=== PATIENT | male | born 1980 | race Caucasian/White ===

== ENCOUNTER 2017-04-09 22:03 | Emergency (ER) | payer OTHER ==
[~2017-04-09] VITALS: Ht 188 cm; Wt 87.2 kg
[2017-04-09 22:07] VITALS: TEMP 37.2; Ht 188 cm; Wt 87.2 kg
[2017-04-09 22:58] LABS: BASO % 0.5 %; BASO ABS # 0.04 K/uL (0-0.2); COMPLETE YES; EOS % 0.4 %; IG% 0.1 %; LYMPH % 34.1 %; LYMPH ABS # 2.54 K/uL (1.2-3.4); MEAN CELL VOLUME 98.7 fL (80-100); MEAN CORPUSCULAR HEMOGLOBIN 33.8 pg (25-34); MEAN CORPUSCULAR HGB CONC 34.2 g/dl (32-36); MEAN PLATELET VOLUME 11.3 fL (7.4-10.4); MONO % 7.5 %; NEUT % 57.4 %; PLATELET COUNT 260 K/uL (130-400); RED BLOOD COUNT 4.56 M/uL (4.7-6.1); WHITE BLOOD COUNT 7.45 K/uL (4.8-10.8)
[2017-04-09 23:16] LABS: BUN/CREATININE RATIO 6.3 (10-20); CALCIUM 8.4 mg/dl (8.5-10.1); CREATININE 0.95 mg/dl (0.60-1.40); POTASSIUM 3.6 mmol/L (3.5-5.1)
--- NOTE | 2017-04-10 02:52 | EMERGENCY ROOM VISIT NOTE ---
History Report prepared by Blanca: Анна Matias Under the Supervision of: Dr. Marcelo Connors D.O. 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 The patient is visiting for the from [place]. He was staying with a friend and got into an argument with them tonight and got kicked out. He went to the bar and was drinking heavily making suicidal statements to the personal secretary at the [facility]. The patient was later found unconscious in the stairwell of the [facility]. He was brought to the ED by ambulance. The patient denies any SI or HI. He denies making any suicidal statements tonight. He states that he was drinking "because I am an alcoholic." He estimates that he drinks 24 shots of liquor per day. He states that tonight he had 12 drinks but the last drink was at 6pm. Pt denies headache, change in vision, fevers, chest pain, shortness of breath, nausea, vomiting, diarrhea, pain with urination, and melena. He denies recent trauma or falls. He denies any illicit drug use. Source of History: patient, EMS Onset: TECHNICAL SALES ADVISOR Position: other (global) Quality: other (intoxication) Timing: other (episode) Associated Symptoms: No fevers, No headache, No chest pain, No SOB, No nausea, No vomiting, No melena, No diarrhea, No urinary symptoms Note: Pt denies SI and HI. Review of Systems See HPI for pertinent positives & negatives. A total of 10 systems reviewed and were otherwise negative. Past Medical & Surgical Medical Problems: (1) No significant active problems Family History No pertinent history stated. Social History Smoking Status: Current Every Day Smoker Alcohol Use: heavy Drug Use: none Occupation Status: employed Current/Historical Medications Unable to Obtain Active Prescriptions or Reported Meds Physical Exam Vital Signs Date Time Temp Pulse Resp B/P (MAP) Pulse Ox O2 Delivery O2 Flow Rate FiO2 04/10/17 02:25 115 04/10/17 01:01 106/64 04/10/17 00:33 112 20 94 Nasal Cannula 2.0 04/10/17 00:31 96/55 04/10/17 00:03 109 21 89 Room Air 04/10/17 00:01 118/69 04/09/17 23:33 109 19 93 Room Air 04/09/17 23:31 133/90 04/09/17 23:03 107 18 88 04/09/17 23:01 128/91 04/09/17 22:33 108 8 90 04/09/17 22:31 135/88 04/09/17 22:25 143/91 04/09/17 22:08 117 04/09/17 22:07 37.2 117 20 138/84 95 Room Air 04/09/17 22:06 138/84 Physical Exam GENERAL: alert, sitting up in bed, smell of alcohol on breath, nontoxic no acute distress, slurring words HEAD: NC/AT EYE EXAM: Conjunctiva injected OROPHARYNX: no exudate, no erythema, lips, buccal mucosa, and tongue normal and mucous membranes are dry NECK: supple, no nuchal rigidity, no adenopathy, non-tender LUNGS: Clear to auscultation. Normal chest wall mechanics HEART: no murmurs, S1 normal and S2 normal CHEST: Stable to compression anterior and posterior. ABDOMEN: abdomen soft, non-tender, normo-active bowel sounds, no masses, no rebound or guarding. BACK: Back is symmetrical on inspection and there is no deformity, no midline tenderness, no CVA tenderness. PELVIS: Stable to compression anterior and posterior. SKIN: no rashes and no bruising UPPER EXTREMITIES: upper extremities are grossly normal. Full active and passive ROM of all joints without tenderness. LOWER EXTREMITIES: No pitting edema. Full active and passive ROM of all joints without tenderness. NEURO EXAM: Awake, alert, oriented to person, place, and time. Moving all extremities, slurring words, and falls asleep quickly, no focal deficits. Medical Decision & Procedures Laboratory Results 04/09/17 22:47 Red Blood Count 4.56, Mean Corpuscular Volume 98.7, Mean Corpuscular Hemoglobin 33.8, Mean Corpuscular Hemoglobin Concent 34.2, Mean Platelet Volume 11.3, Neutrophils (%) (Auto) 57.4, Lymphocytes (%) (Auto) 34.1, Monocytes (%) (Auto) 7.5, Eosinophils (%) (Auto) 0.4, Basophils (%) (Auto) 0.5, Neutrophils # (Auto) 4.27, Lymphocytes # (Auto) 2.54, Monocytes # (Auto) 0.56, Eosinophils # (Auto) 0.03, Basophils # (Auto) 0.04 04/09/17 22:47 Test 04/09/17 22:47 White Blood Count 7.45 K/uL (4.8-10.8) Red Blood Count 4.56 M/uL (4.7-6.1) Hemoglobin 15.4 g/dL (14.0-18.0) Hematocrit 45.0 % (42-52) Mean Corpuscular Volume 98.7 fL (80-100) Mean Corpuscular Hemoglobin 33.8 pg (25-34) Mean Corpuscular Hemoglobin Concent 34.2 g/dl (32-36) Platelet Count 260 K/uL (130-400) Mean Platelet Volume 11.3 fL (7.4-10.4) Neutrophils (%) (Auto) 57.4 % Lymphocytes (%) (Auto) 34.1 % Monocytes (%) (Auto) 7.5 % Eosinophils (%) (Auto) 0.4 % Basophils (%) (Auto) 0.5 % Neutrophils # (Auto) 4.27 K/uL (1.4-6.5) Lymphocytes # (Auto) 2.54 K/uL (1.2-3.4) Monocytes # (Auto) 0.56 K/uL (0.11-0.59) Eosinophils # (Auto) 0.03 K/uL (0-0.5) Basophils # (Auto) 0.04 K/uL (0-0.2) RDW Standard Deviation 55.6 fL (36.4-46.3) RDW Coefficient of Variation 15.4 % (11.5-14.5) Immature Granulocyte % (Auto) 0.1 % Immature Granulocyte # (Auto) 0.01 K/uL (0.00-0.02) Anion Gap 14.0 mmol/L (3-11) Est Creatinine Clear Calc Drug Dose 123.8 ml/min Estimated GFR () 118.0 Estimated GFR (Non- 101.9 BUN/Creatinine Ratio 6.3 (10-20) Calcium Level 8.4 mg/dl (8.5-10.1) Total Bilirubin 0.2 mg/dl (0.2-1) Direct Bilirubin 0.1 mg/dl (0-0.2) Aspartate Amino Transf (AST/SGOT) 102 U/L (15-37) Alanine Aminotransferase (ALT/SGPT) 97 U/L (12-78) Alkaline Phosphatase 125 U/L (45-117) Total Protein 7.5 gm/dl (6.4-8.2) Albumin 3.8 gm/dl (3.4-5.0) Ethyl Alcohol mg/dL 335.0 mg/dl (0-3) Laboratory results per my review. ED Course ED COURSE: Vital signs were reviewed and showed tachycardic and hypertensive. The patients medical record was reviewed The above diagnostic studies were performed and reviewed. ED treatments and interventions as stated above. 2211: The patient was evaluated in room B4B. A complete history and physical examination was performed. 0157: I reassessed the patient at this time. He is currently on NC-O2. I discussed the results and treatment plan with the patient. I answered all pertaining questions that he had. He expressed understanding and verbalized agreement. 0230: The patient was signed out to Dr. Samano at the change of shift. Medical Decision Differential diagnosis includes etiologies such as alcohol intoxication, toxicologic, infection, hypoglycemia, electrolyte abnormalities, cardiac sources , intracerebral event, neurologic, as well as others were entertained. Patient is a 37-year-old male presents to ER as he was staying at the [facility] as he was kicked out of the room he was staying in by his friend. He went onto the bar and continued to drink. He was making reportedly suicidal statements to the personal secretary. At which point he went into the stairwell and was found passed out. He is brought in by EMS. No signs of trauma. He does waken to voice and follows commands but slurs his words. He is visibly intoxicated. CBC is unremarkable. BMP shows a mild hypernatremia which I favor secondary to dehydration from drinking. AST male appears slightly elevated as well and I favor again secondary to him being an alcoholic. Alcohol was 335 at 11 PM. He will be sober per lab work around 10 AM in the morning. As he is an alcoholic he may be clinically sober prior to then. He is requiring a small amount of nasal cannula as his sleeping. He is slightly tachycardic. He does awaken easily to voice on multiple re-evaluations and has no new complaints. Patient was signed out to Dr. Samano for evaluation in the morning when he lucas up. He will need to be reevaluated discharged to his suicidal statements and reassessed physically once sober. Medication Reconcilliation Current Medication List: was personally reviewed by me Blood Pressure Screening Patient's blood pressure: Elevated blood pressure Blood pressure disposition: Elevated BP felt to be situational Impression Primary Impression: Alcohol intoxication Additional Impressions: Verbalizes suicidal thoughts Transaminitis Scribe Attestation The scribe's documentation has been prepared under my direction and personally reviewed by me in its entirety. I confirm that the note above accurately reflects all work, treatment, procedures, and medical decision making performed by me. Departure Information Dispostion Still a Patient Prescriptions Unable to Obtain Active Prescriptions or Reported Meds Patient Instructions My [facility] Problem Qualifiers Primary Impression: Alcohol intoxication Complication of substance-induced condition: uncomplicated Qualified Codes: F10.920 - Alcohol use, unspecified with intoxication, uncomplicated
--- NOTE | 2017-04-10 06:49 | EMERGENCY ROOM VISIT NOTE ---
ED Visit Note First contact with patient: 03:13 37 yr old intoxicated male brought in from local bar after being found sleeping in stairwell and having made statements regarding suicidal thoughts to school photographer. No 302 and patient with no reported attempt at harming self. Heavily intoxicated thus signed out to me awaiting sobering up and discussion of earlier statements. Signed out to Dr Garcia still awaiting being sober. Slept soundly throughout night without issue. Mildly tachy at times consistent with intoxication.
[2017-04-10] MEDS ORDERED: LORAZEPAM 1 MG TAB SL STA (06:53)
[2017-04-10] MEDS ORDERED: ESCI1TAB10 (07:05)
--- NOTE | 2017-04-10 11:24 | EMERGENCY ROOM VISIT NOTE ---
ED Visit Note First contact with patient: 07:23 I assumed care at the change of shift. The patient had presented intoxicated with alcohol. He had made a comment last night about wanting to harm himself. It was felt that he required a psychiatric consult once his alcohol cleared. The patient is now awake and interactive. He does not appear clinically intoxicated. He denies suicidality or any intent. He states it was the alcohol talking, he states he was "wasted". He was seen by our psychiatry case management team, discharge was felt appropriate. He did not require any inpatient psychiatric care. The patient is being advised not to use alcohol in excess. He should return if worsening, he will follow with his doctor when he returns home.
[2017-04-10 11:47] VITALS: BP 137/99; PULSE 110; O2SAT 99
== END 2017-04-10 11:47 | disposition home or self-care (01) ==
LOC: C.EDB 22:07
DX: F10.220 Alcohol dependence with intoxication, uncomplicated (principal); F17.210 Nicotine dependence, cigarettes, uncomplicated; E87.0 Hyperosmolality and hypernatremia; Y90.8 Blood alcohol level of 240 mg/100 ml or more; R74.0 Nonspecific elevation of levels of transaminase and lactic acid dehydrogenase [LDH]